=== PATIENT | male | born 1935 | race Caucasian/White ===

== ENCOUNTER 2016-09-12 21:29 | Emergency (ER) | payer OTHER ==
[~2016-09-12 21:29] MED LIST: C25 PO; C5 PO; CELLCEPT2 PO; CIP5 PO; GENGRAF100 MG OR; PT. UNABLE TO RECALL
== END 2016-09-12 23:27 | disposition home or self-care (01) ==
LOC: ER 21:29
PROC: 0HQ1XZZ Repair Face Skin, External Approach (ICD-10-PCS; principal; 2016-09-12)
DX: S09.90XA Unspecified injury of head, initial encounter (principal); S01.112A Laceration without foreign body of left eyelid and periocular area, initial encounter; S46.912A Strain of unspecified muscle, fascia and tendon at shoulder and upper arm level, left arm, initial encounter; I25.2 Old myocardial infarction; Z79.01 Long term (current) use of anticoagulants; Z79.899 Other long term (current) drug therapy; W19.XXXA Unspecified fall, initial encounter
CPT/HCPCS: 70450; 73030-LT; 90471; 90714; 93005; 99285; A9270-GY